=== PATIENT | male | born 1965 | race Caucasian/White ===

== ENCOUNTER 2023-02-27 08:33 | Day surgery (SDC) | payer OTHER ==
[~2023-02-27 08:33] MED LIST: Lactated Ringers 1,000 ML IV SCH; Lidocaine 1%/Sod Bicarbonate in NS 8.4% 1 ML Syringe IDERM PRN; Sodium Chloride 0.9% 10 ML Syringe FLUSH PRN; Sodium Chloride 0.9% 10 ML Syringe FLUSH SCH
[2023-02-27] MEDS ORDERED: fentaNYL 100 MCG/2 ML SDV ONE (09:58)
[2023-02-27] MEDS ORDERED: Propofol 200 MG/20 ML SDV ONE ×2 (09:58→12:04)
[2023-02-27] MEDS ORDERED: Lactated Ringers 1,000 ML IV ONE (12:00)
== END 2023-02-27 13:30 | disposition home or self-care (01) ==
LOC: JD.SDS 08:33
PROVIDERS: ATTEND Surgery
DX: D12.7 Benign neoplasm of rectosigmoid junction (principal); D12.4 Benign neoplasm of descending colon; D12.5 Benign neoplasm of sigmoid colon; D12.3 Benign neoplasm of transverse colon; K57.30 Diverticulosis of large intestine without perforation or abscess without bleeding; K64.8 Other hemorrhoids; Z87.891 Personal history of nicotine dependence; Z88.0 Allergy status to penicillin; C7A.1 Malignant poorly differentiated neuroendocrine tumors; Z79.899 Other long term (current) drug therapy
CPT/HCPCS: 45380; 45385; J2704; J3010; J7120; 00811

== ENCOUNTER 2024-01-01 07:14 | Day surgery (SDC) | payer OTHER ==
[~2024-01-01 07:14] MED LIST changes: -Lactated Ringers 1,000 ML IV SCH; -Lidocaine 1%/Sod Bicarbonate in NS 8.4% 1 ML Syringe IDERM PRN
[2024-01-01] MEDS: Lactated Ringers 1,000 ML IV SCH (07:45)
[2024-01-01] MEDS ORDERED: fentaNYL 100 MCG/2 ML SDV ONE (08:57)
[2024-01-01] MEDS ORDERED: Propofol 200 MG/20 ML SDV ONE ×2 (08:57→09:14)
[2024-01-01] MEDS ORDERED: Midazolam 1 MG/ML 2 ML SDV ONE (08:58)
[2024-01-01] MEDS ORDERED: Lidocaine 1% 4 ML ONE (08:59)
== END 2024-01-01 10:35 | disposition home or self-care (01) ==
LOC: JD.SDS 07:14
PROVIDERS: ATTEND Surgery
DX: Z12.11 Encounter for screening for malignant neoplasm of colon (principal); D12.3 Benign neoplasm of transverse colon; D12.5 Benign neoplasm of sigmoid colon; D12.8 Benign neoplasm of rectum; K57.30 Diverticulosis of large intestine without perforation or abscess without bleeding; K64.8 Other hemorrhoids; I10 Essential (primary) hypertension; Z87.891 Personal history of nicotine dependence; Z79.899 Other long term (current) drug therapy; Z88.0 Allergy status to penicillin
CPT/HCPCS: 45380; 45381; J2250; J2704; J3010; J7120; 00811; J3490